=== PATIENT | female | born 1995 | race Caucasian/White ===

== ENCOUNTER 2024-08-06 12:30 | Inpatient (IN) | payer BC ==
[2024-08-06] VITALS (39 sets, daily range): BP systolic 102–143; BP diastolic 55–93; PULSE 70–116; TEMP 98.4–98.7
[~2024-08-06] VITALS: Ht 162.7 cm; Wt 82.3 kg
[~2024-08-06 12:30] MED LIST: APRI 0.15 MG-0.1 TAB PO; ZOFRAN 4MG T4 MG/TAB PO
--- NOTE | 2024-08-06 12:50 | NUR ---
PT AND SPOUSE AMBULATED TO ROOM AND CHANGED INTO GOWN. PT PLACED ON MONITORS. FHT CATAGORY 1. VS WNL. IV STARTED AND LABS DRAWN. PT DENIES LOF AND VB. PT IS FEELING REGULAR MOVEMENT. SVE /-2. PITOCIN STARTED PER PROTOCAL.
[2024-08-06] MEDS ORDERED: LR 1,000 ML IV SCH (13:00)
[2024-08-06] MEDS ORDERED: LR & Oxytocin 500 ML IV SCH (13:00)
[2024-08-06 13:43] LABS: BASO % 0.1 % (0.0-2.0); EOS % 0.2 % (0.0-4.0); GRAN # 6.3 K/mm3 (1.4-6.5); GRAN % 72.9 % (42.2-75.2); HEMATOCRIT 39.6 % (37.0-47.0); HEMOGLOBIN 13.7 g/dl (12.5-16.0); LYMPH # 1.7 K/mm3 (1.2-3.4); LYMPH % 19.5 % (20.0-51.0); MEAN CELL VOLUME 89 fl (80.0-100.0); MEAN CORPUSCULAR HEMOGLOBIN 31 pg (27-31); MEAN CORPUSCULAR HGB CONC 35 g/dl (33.0-37.0); MONO # 0.6 K/mm3 (0.1-0.6); MONO % 6.6 % (1.7-9.3); PLATELET COUNT 267 K/mm3 (130-400); RED BLOOD COUNT 4.47 M/mm3 (4.10-5.30); REDCELL DISTRIBUTION WIDTH-CV 12.5 % (11.5-14.5)
[2024-08-06] MEDS ORDERED: PRENATAL TABLET PO (13:47)
[2024-08-06] MEDS ORDERED: SLOW FE137 M1 PO (13:47)
[2024-08-06] MEDS ORDERED: PROBIOTIC-PREB1 EACH PO (13:48)
--- NOTE | 2024-08-06 15:40 | NUR ---
1540- RN AT BEDSIDE TALKING WITH PT. 1545- AUDIBLE DECEL HEARD DOWN TO 60 BPM, MATERNAL HEART RATE WAS 106. PT WAS TURNED TO LL AND HEART TONES RESOLVED. RN CONTINUED TO MONITOR FHT, BUT NO FURTHER DECELS NOTED.
--- NOTE | 2024-08-06 17:07 | NUR ---
170- NOTIFIED MERON THAT MY PATIENT WANTED AN EPIDURAL WHEN HE WAS DONE WITH THE CURRENT SURGERY. MERON ACCKNOWLEDGED.
[2024-08-06] MEDS ORDERED: ePHEDrine 50 MG/10 ML VIAL IV PRN (17:45)
[2024-08-06] MEDS ORDERED: diphenhydrAMINE 25 MG CAP PO PRN (17:45)
[2024-08-06] MEDS ORDERED: diphenhydrAMINE 50 MG/ML 1 ML VIAL IV PRN (17:45)
[2024-08-06] MEDS ORDERED: Ondansetron 4 MG/2 ML VIAL IV PRN (17:45)
[2024-08-06] MEDS ORDERED: Naloxone 0.4 MG/ML VIAL IV PRN (17:45)
--- NOTE | 2024-08-06 17:46 | NUR ---
1740- PT SEATED AT BEDSIDE, BP AND O2 MONITORS APPLIED. MERON AT BEDSIDE EXPLAINING RISKS. PT AGREED TO EPIDURAL. 1745- SINGLE SHOT PLACED. PT THEN REPOSITIONED TO WEDGE LEFT. PT TOLERATED PROCEEDURE WELL.
[2024-08-06] MEDS ORDERED: ROPivacaine PF 0.2% 200 ML IV ONE (17:56)
--- NOTE | 2024-08-06 19:05 | NUR ---
PLACED IN RT LATERAL WITH LEFT LEG IN STIRRUP
--- NOTE | 2024-08-06 19:35 | NUR ---
MOVED TO LT LATERAL WITH RT LEG IN STIRRUP
--- NOTE | 2024-08-06 20:50 | NUR ---
PT HAVING SOME DISCOMFORT IN RT RIB AREA RADIATING DOWN. HELP PT CHANGE POSITION. ENCOURAGED HER TO PRESS THE EPIDURAL BOLUS BUTTON WELL.
--- NOTE | 2024-08-06 21:45 | NUR ---
PT STILL HAVING SOME PAIN IN RT RIB AREA. NAUSEATED DESPITE HAVING ZOFRAN EARLIER. ASSISTED PT TO RT LATERAL POSITION. EPIDURAL BOLUS BUTTON PUSHED PER PT.
--- NOTE | 2024-08-06 22:00 | NUR ---
PT HAVING PAIN RELIEF. DR PERALTA TO ROOM. SVE. WILL POSITION SIDE TO SIDE WITH PEANUT BALL, THEN TO [facility].
--- NOTE | 2024-08-06 23:45 | NUR ---
[place] REMOVED WHILE PUSHING
[2024-08-07] VITALS (30 sets, daily range): BP systolic 97–153; BP diastolic 57–94; PULSE 56–122; TEMP 98–98.4
--- NOTE | 2024-08-07 | NUR ---
NURSE REMAINS AT BEDSIDE DURING PUSHING. MONITORING FHR CONTINUOUSLY
--- NOTE | 2024-08-07 00:30 | NUR ---
VERY LITTLE PROGRESS WITH PUSHING. HAVE DONE SEMI-SITTING AND TUG OF WAR. NOW ASSISTED TO SQUAT DURING PUSHING USING SQUAT BAR. PT TOLERATING PUSHING WELL.
--- NOTE | 2024-08-07 01:00 | NUR ---
PT PUSHING IN RT SIDE LYING POSITION. LITTLE PROGRESS. TOLERATING WELL. RN REMAINS AT BEDSIDE MONITORING FHR CONTINUOUSLY. SOME MILD VARIABLE DECELERATIONS WITH PUSHING.
--- NOTE | 2024-08-07 02:00 | NUR ---
PUSHING CONTINUES. NO REAL PROGRESS. RN REMAINS AT BEDSIDE MONITORING FHR CONTINOUSLY. 0213-MD NOTIFIED OF LACK OF PROGRESS. SHE IS ON HER WAY IN.
--- NOTE | 2024-08-07 02:23 | NUR ---
DECISION FOR AFTER MD DISCUSSED WITH PT. PUSHING EFFORTS STOPPED. LR BOLUS BEGUN. RN HAS REMAINED AT BEDSIDE MONITORING FHR CONTINOUSLY. INTERMITTENT MILD VARIABLE DECELS WITH PUSHING.
--- NOTE | 2024-08-07 02:41 | NUR ---
DEFENSIVE LINE COACH AT BEDSIDE. INFORMED HIM PT HAD TAKEN SOME BOLUS DOSES OF EPIDURAL DURING PUSHING WITH SOME RELIEF. PT HAD DIFFERENT SPOTS OF PAIN THAT HAD CHANGED WITH POSITIONING AND PUSHING. DEFENSIVE LINE COACH DOSED EPIDURAL. 0244-AZITHROMYCIN STARTED 0247-ABDOMINAL WASH PERFORMED AFTER SHAVE PREP COMPLETED. 0250-TO OR PER BED
[2024-08-07] MEDS ORDERED: Phenylephrine 10 MG/ML VIAL ONE (02:45)
[2024-08-07] MEDS ORDERED: Azithromycin 500 MG in NS 250 ML IV ONE (02:45)
[2024-08-07] MEDS ORDERED: Ketorolac 60 MG/2 ML VIAL IM ONE (02:45)
[2024-08-07] MEDS ORDERED: NS 20 ML IV ONE (02:46)
[2024-08-07] MEDS ORDERED: Ondansetron 4 MG/2 ML VIAL ONE (02:46)
[2024-08-07] MEDS ORDERED: dexAMETHasone 10 MG/ML VIAL ONE (02:46)
[2024-08-07] MEDS ORDERED: Oxytocin 10 UNITS/ML VIAL ONE (02:46)
[2024-08-07] MEDS ORDERED: fentaNYL 50 MCG/ML 2 ML VIAL ONE (03:13)
[2024-08-07] MEDS ORDERED: Meperidine 50 MG/ML 1 ML VIAL ONE (03:27)
[2024-08-07] MEDS ORDERED: LR 1,000 ML IV ONE (03:28)
[2024-08-07] MEDS ORDERED: Loratadine 10 MG TAB PO PRN (04:00)
[2024-08-07] MEDS ORDERED: Ondansetron 4 MG/2 ML VIAL IV PRN (04:00)
[2024-08-07] MEDS ORDERED: LR 1,000 ML IV PRN (04:00)
[2024-08-07] MEDS ORDERED: oxyCODONE/Acetaminophen 5-325 MG TAB PO PRN (04:00)
[2024-08-07] MEDS ORDERED: Naloxone 0.4 MG/ML VIAL IV PRN (04:00)
[2024-08-07] MEDS ORDERED: Measles/Mumps/Rubella Virus Vaccine Live w Diluent 0.5 ML VIAL SQ SCH (04:00)
[2024-08-07] MEDS ORDERED: Magnes Hydrox (MOM) 80 MG/ML 30 ML CUP PO PRN (04:00)
--- NOTE | 2024-08-07 05:55 | NUR ---
PT DROWSY, AROUSES EASILY. DENIES PAIN. ABLE TO MOVE BOTH FEET. RESPIRATIONS EVEN AND UNLABORED.
[2024-08-07] MEDS ORDERED: Methylergonovine 0.2 MG/ML 1 ML AMPUL IM SCH (07:07)
[2024-08-07] MEDS ORDERED: Sennosides/Docusate 8.6-50 MG TAB PO SCH (08:00)
[2024-08-07 08:30] LABS: HEMOGLOBIN 11.9 g/dl (12.5-16.0); MEAN CELL VOLUME 87 fl (80.0-100.0); MEAN CORPUSCULAR HEMOGLOBIN 31 pg (27-31); MEAN CORPUSCULAR HGB CONC 36 g/dl (33.0-37.0); PLATELET COUNT 203 K/mm3 (130-400); RED BLOOD COUNT 3.83 M/mm3 (4.10-5.30); REDCELL DISTRIBUTION WIDTH-CV 12.4 % (11.5-14.5)
[2024-08-07 08:35] LABS: HEMATOCRIT 33.4 % (37.0-47.0)
[2024-08-07 09:03] LABS: BAND 6 % (0-10); NEUTROPHILS 92 % (42.0-75.2); PLATELET ESTIMATE NORMAL (NORMAL)
--- NOTE | 2024-08-07 09:53 | NUR ---
UPON SHIFT CHANGE PER REPORT PATIENT WAS STILL HAVING BLEEDING AND HAD TOTALLED OVER 1000MLS. THIS NURSE THEN WENT IN TO ASSESS BLEEDING AT 0645 AND DID A FUNDAL RUB THAT PRODUCED 490MLS WITH MANY LARGE CLOTS. UTERUS WAS AT THE UMBILICUS BUT AFTER THE FUNDAL CAME TO D2. PATIENT THEN TALKED THROUGH THE NEED FOR MEDICATIONS TO HELP HER UTERUS CONTRACT. DR PERALTA CALLED AND RECEIVED ORDERS FOR 2ND BAG OF PITOCIN TO BE HUNG AND IM METHERGINE. PATIENT GIVEN METHERGIVE AND PIT AT 0700 AND PATIENT CHANGED AND CLEANED UP. VSS AT THIS TIME. FUNDAL RUBS WERE THEN DONE EVERY 15 MINUTES FOR THE NEXT HOUR AND MINIMAL BLEEDING NOTED. PATIENT STABLE AND DOING WELL. URINE OUTPUT VERY GOOD AND VSS. WILL CONTINUE TO MONITOR
[2024-08-07] MEDS ORDERED: Ibuprofen 800 MG TAB PO SCH (10:00)
[2024-08-07] MEDS ORDERED: traZODone 50 MG TAB PO PRN (21:00)
[2024-08-08 08:45] VITALS: BP 104/63; PULSE 77; TEMP 98.2
[2024-08-08] MEDS ORDERED: IBU800 M1 PO (12:35)
[2024-08-08] MEDS ORDERED: PERCOCET 325 MG1 TA2 PO (12:35)
[2024-08-08 16:30] VITALS: BP 110/69; PULSE 87; TEMP 98.4
[2024-08-08] MEDS ORDERED: Estradiol 0.01% Vaginal Cream 42.5 G TUBE VG ONE (20:15)
[2024-08-08 21:00] VITALS: BP 113/66; BP 124/78; PULSE 102; PULSE 79; TEMP 98; TEMP 98.2
[2024-08-09 07:30] VITALS: BP 122/64; PULSE 68; TEMP 98.4
== END 2024-08-09 14:30 | disposition home or self-care (01) | DRG 540 ==
LOC: OB 12:30 → LDR 12:34 → OB 12:34
PROVIDERS: ADMIT Student in an Organized Health Care Education/Training Program
PROC: 3E033VJ Introduction of Other Hormone into Peripheral Vein, Percutaneous Approach (ICD-10-PCS; 2024-08-06)
PROC: 10D00Z1 Extraction of Products of Conception, Low, Open Approach (ICD-10-PCS; principal; 2024-08-07)
PROC: 10907ZC Drainage of Amniotic Fluid, Therapeutic from Products of Conception, Via Natural or Artificial Opening (ICD-10-PCS; 2024-08-07)
DX: O48.0 Post-term pregnancy (principal); Z37.0 Single live birth; O62.0 Primary inadequate contractions; O99.02 Anemia complicating childbirth; D64.9 Anemia, unspecified; O87.4 Varicose veins of lower extremity in the puerperium; O34.13 Maternal care for benign tumor of corpus uteri, third trimester; O69.81X0 Labor and delivery complicated by cord around neck, without compression, not applicable or unspecified; Z3A.40 40 weeks gestation of pregnancy; Z28.39 Other underimmunization status
CPT/HCPCS: A9284; J0665; J0690; J1100; J1885; J2175; J2210; J2371; J2405; J2590; J2795; J3010; J7120